=== PATIENT | female | born 1980 | race Caucasian/White ===

== ENCOUNTER 2022-02-20 22:50 | Emergency (ER) | payer OTHER ==
[~2022-02-20] VITALS: Ht 167.6 cm; Wt 86.2 kg
[2022-02-20 22:55] VITALS: BP 124/76
--- NOTE | 2022-02-20 23:05 | NUR ---
PT CHAVEZ ALS. TAKEN TO BED 10
--- NOTE | 2022-02-20 23:06 | NUR ---
Dr. Balbuena examining patient.
--- NOTE | 2022-02-20 23:20 | NUR ---
XRAY AT BEDSIDE
--- NOTE | 2022-02-20 23:34 | NUR ---
MANUFACTURING ENGINEER ASSEMBLY AT BEDSIDE
[2022-02-20 23:44] LABS: BASOPHILS # (AUTO) 0.1 K/uL (0.00-0.22); BASOPHILS % (AUTO) 1.3 % (0.0-2.0); EOSINOPHILS # (AUTO) 0.1 K/uL (0-0.4); EOSINOPHILS % (AUTO) 1.3 % (0.0-4.0); HEMATOCRIT 37.9 % (36-48); HEMOGLOBIN 12.4 g/dL (12.0-16.0); LYMPHOCYTES # (AUTO) 0.9 K/uL (2.5-16.5); LYMPHOCYTES % (AUTO) 17.2 % (20.5-51.1); MEAN CORPUSCULAR HEMOGLOBIN 29 pg (27-31); MEAN CORPUSCULAR HGB CONC 33 g/dL (33-37); MEAN CORPUSCULAR VOLUME 87.3 fL (80-94); MONOCYTES # (AUTO) 0.4 K/uL (0.8-1.0); MONOCYTES % (AUTO) 8.4 % (1.7-9.3); NEUTROPHILS # (AUTO) 3.8 K/uL (1.8-7.7); NEUTROPHILS % (AUTO) 71.8 % (42.2-75.2); PLATELET COUNT (AUTO) 117 K/uL (140-450); RED BLOOD CELL COUNT(AUTO) 4.34 MIL/uL (4.20-5.40); RED CELL DISTRIBUTION WIDTH 21.4 % (11.6-13.7); WHITE BLOOD COUNT (AUTO) 5.4 K/uL (4.8-10.8)
--- NOTE | 2022-02-20 23:51 | NUR ---
41 Y/O FEMALE BIBA, C/O SZR. PT STATES SHE WAS SHOPPING IN [place] AND SHE NOTICED A WHITE LINE ACROSS HER VISION RIGHT BEFORE THE SEIZURE. Per bystanders, patient had clonic -tonic seizure at store for unkown time. Given Zofran 4 mg IV at the scene by medics. EKG-normal, BS 167. Pt currently a/ox4, gcs-15, unlabored breathing and speakingin full sentences. pt has bleeding to her lip. PMHx: Thyroid. nka
--- NOTE | 2022-02-21 00:08 | NUR ---
PT TAKEN FOR CT
--- NOTE | 2022-02-21 00:19 | NUR ---
PT RETURN FROM CT
[2022-02-21 00:25] LABS: ALBUMIN 3.6 g/dL (3.4-5.0); ANION GAP 14.7 (8-16); ASPARTATE AMINOTRANSFERASE 219 U/L (15-37); CARBON DIOXIDE 27.3 mmol/L (21-32); CHLORIDE 97 mmol/L (98-107); CREATININE 0.9 mg/dL (0.6-1.3); GFR ARICAN-AMERICAN 89 mL/min (>90); GLUCOSE 217 mg/dL (74-106); SODIUM SERUM 136 mmol/L (136-145); TOTAL BILIRUBIN 1.2 mg/dL (0.0-1.0); UREA NITROGEN, BLOOD 10 mg/dL (7-18)
[2022-02-21] MEDS ORDERED: POTASSIUM CHLORIDE 10 MEQ TABER PO ONE (01:35)
[2022-02-21] MEDS ORDERED: IBUP-2213 PO (01:59)
[2022-02-21 02:43] VITALS: BP 124/76
--- NOTE | 2022-02-21 02:44 | NUR ---
Note jorge in ED - 02/21/22 at 0246 by [email or web address] Patient discharged with v/s stable. Written and verbal after care instructions given and explained. Patient verbalized understanding. Ambulatory with steady gait. All questions addressed prior to discharge. Advised to follow up with PMD. VSS, A/OX4, AMBULATORY, UNLABORED BREATHING, AND CALM DEMEANOR.
--- NOTE | 2022-02-21 02:46 | NUR ---
Patient discharged with v/s stable. Written and verbal after care instructions given and explained. Patient alert, oriented and verbalized understanding of instructions. Ambulatory with steady gait. All questions addressed prior to discharge. ID band removed. Patient advised to follow up with PMD. Rx of IBUPROFEN given. Patient educated on indication of medication including possible reaction and side effects. Opportunity to ask questions provided and answered. VSS, A/OX4, AMBULATORY, UNLABORED BREATHING, AND CALM DEMEANOR.
== END 2022-02-21 02:46 | disposition home or self-care (01) ==
LOC: MED 22:50 → EDBD 22:50 → MED 02-21 02:46
DX: S01.511A Laceration without foreign body of lip, initial encounter (principal); R56.9 Unspecified convulsions; Z86.39 Personal history of other endocrine, nutritional and metabolic disease; X58.XXXA Exposure to other specified factors, initial encounter; Y92.89 Other specified places as the place of occurrence of the external cause; Y93.89 Activity, other specified; Y99.8 Other external cause status
CPT/HCPCS: 12011; 36415; 70450; 71045; 80053; 84443; 85025; 93005; 99285; G0482; Q0092